=== PATIENT | female | born 1925 | race African-American/Black ===

== ENCOUNTER 2016-09-29 16:13 | Inpatient (IN) | payer MEDICARE, OTHER ==
--- NOTE | ~2016-09-29 | DS ---
Discharge Summary [facility] [address] [place]. [address] NAME: CANDI ENCINAS : [birth year] STATUS : DIS IN PAT#: [id number] AGE: 89 ADM/REG DATE : 09/29/16 MR#: [id number] REPORT SERV DATE: 10/03/16 DICTATED BY: RAFAELA TAVERA DATE: 10/03/16 REPORT STATUS : Draft TRANSCRIBED BY: MODL DATE: 10/03/16 ADMISSION DATE: 09/29/2016 DISCHARGE DATE: 10/03/2016 CONSULTING PHYSICIANS: None. FINAL DIAGNOSES: 1. Catheter associated urinary tract infection, Proteus mirabilis. 2. Status post encephalopathy with history of dementia. 3. Stage III decubitus ulcer. 4. Rheumatoid arthritis history. 5. Hypertension. 6. Chronic obstructive pulmonary disease. 7. Depression and anxiety. 8. Gastroesophageal reflux disease. DIAGNOSTIC EXAMS: Chest x-ray showing stable COPD changes in the lungs without acute cardiopulmonary abnormality. Stable mild enlargement of the cardiac silhouette and atherosclerotic elongation of the thoracic aorta. HOSPITAL COURSE: Please refer to the H and P done by Dr. Howard dated on 09/29/2016. Briefly, this is an 89-year-old female, who comes in for confusion. The patient has a history of bilateral sacral decubitus ulcer, and according to the family, has been improving throughout the month. However, she has this catheter associated UTI that has been going on and off. They have been treated the patient with several different antibiotics, but they noted increase in confusion and they brought the patient to the hospital. Here, they found the patient to have urinary tract infection, ceftriaxone was started, and the culture turned out to be Proteus mirabilis, which is sensitive to the second and third generation cephalosporins. The patient's confusion improved, and I discussed this at length with the son that they need to take care of that catheter and to have that periodically replaced. I also discussed with them that doing surveillance urinary cultures is not a good idea as the patient will always be colonized. The patient will now be discharged with the above diagnosis. She will be on the following medications. Norvasc 10 mg a day, folic acid 1 mg a day, milk of magnesia 30 mL a day, multivitamin once a day, Lopressor 12.5 mg every eight hours, Protonix 40 mg a day, Paxil 10 mg a day, Pred Forte eyedrops twice a day, Senokot at bedtime, Tylenol as needed, Dulcolax as needed, Symbicort two puffs 160/4.5 twice a day, Ultram 50 mg every six hours p.r.n., and I will give her a prescription for Ceftin 500 mg p.o. b.i.d. for one more week. The patient would resume her home health and home PT. This has been explained at length to the son and the patient. TIME SPENT: 35 minutes. Discharge Summary [address] [address] NAME: CANDI ENCINAS : [birth year] STATUS : DIS IN PAT#: [id number] AGE: 89 ADM/REG DATE : 09/29/16 MR#: [id number] REPORT SERV DATE: 10/03/16 DICTATED BY: RAFAELA TAVERA DATE: 10/03/16 REPORT STATUS : Draft TRANSCRIBED BY: CARMENCITA DATE: 10/03/16 CARLO/CARMENCITA Rafaela Tavera M.D. / [id number] CC: Gin Mendoza M.D.
--- NOTE | ~2016-09-29 | HP ---
History And Physical [address] [place]. [address] NAME: CANDI ENCINAS : [birth year] STATUS : ADM IN [facility]#: [id number] AGE: 89 ADM/REG DATE : 09/29/16 MR#: [id number] REPORT SERV DATE: 09/29/16 DICTATED BY: LUIS FELIPE VILLATORO DATE: 09/29/16 REPORT STATUS : Draft TRANSCRIBED BY: MODL DATE: 09/29/16 DATE OF ADMISSION: 09/29/2016 CHIEF COMPLAINT: An 89-year-old female presenting with confusion and headache. HISTORY OF PRESENTING ILLNESS: The patient's history was obtained through careful interview with the patient, son, and caregiver coupled with review of [facility] and [facility] medical records. The patient, just on the night prior to admission, was "not feeling good." She had chills, but no fevers and then she developed a slight headache. It is a pressure-like quality at the back of her head and in her neck, 6/10 severity, stating "is giving me a fit." Then today, the patient became slightly confused according to her family and caregiver, but no overt hallucinations. She was not combative or irritable. No abdominal pain. No nausea or vomiting. She has had a good appetite. She has a chronic sacral decubitus ulcer, but it has been "looking good" according to family. She was just seen on the day of admission by Home [facility] Care nurse and thought that it was looking improved, but there was concern on vital signs of an elevated pulse. REVIEW OF SYSTEMS: Otherwise, a 14-point review of systems was obtained and was negative. PAST MEDICAL HISTORY: 1. COPD. 2. Congestive heart failure. 3. Diabetes. 4. Depression and anxiety. 5. Gastroesophageal reflux disorder. 6. Dementia. 7. Hypertension. 8. Urinary tract infections. 9. Sacral decubitus ulcer. 10.Cholelithiasis. 11.Thoracentesis. 12.Rheumatoid arthritis. PAST SURGICAL HISTORY: 1. Bilateral [id number] amputations. 2. Some kind of aneurysm repair? 3. . 4. Cervical spine surgery. 5. Pericardiocentesis, 1997. History And Physical [address] [place] [address] NAME: CANDI ENCINAS : [birth year] STATUS : ADM IN PAT#: [id number] AGE: 89 ADM/REG DATE : 09/29/16 MR#: [id number] REPORT SERV DATE: 09/29/16 DICTATED BY: LUIS FELIPE VILLATORO DATE: 09/29/16 REPORT STATUS : Draft TRANSCRIBED BY: CARMENCITA DATE: 09/29/16 ALLERGIES: TO PENICILLIN, SULFA, AND NEOSPORIN. SOCIAL HISTORY: Quit smoking. No alcohol abuse. Has been single for 50+ years. Has two sons. Is seen by Home Health Care. FAMILY HISTORY: Heart disease and stroke. CURRENT MEDICATIONS: Include Tylenol, Norvasc 10 mg p.o. daily, Dulcolax, Symbicort two puffs inhaled twice a day, folic acid p.o. daily, metoprolol 12.5 mg p.o. q.8 hours, milk of magnesia, multivitamin, Macrobid 100 mg p.o. b.i.d., Protonix 40 mg p.o. daily, Paxil 10 mg p.o. daily, eye drops, Senokot, tramadol p.r.n., witch lizzy. PHYSICAL EXAMINATION: VITAL SIGNS: Temperature 98.8, pulse 115, blood pressure 157/86, respiratory rate 16, O2 saturation 94% on room air. GENERAL: Chronically ill-appearing female, in no particular distress at this time. HEENT: Pupils equal, round, and reactive to light. No conjunctival pallor. No scleral icterus. Nares are patent. Oropharynx is clear of obstruction. Moist mucous membranes. NECK: Trachea midline. No thyromegaly. LYMPH: No cervical lymphadenopathy. No supraclavicular lymphadenopathy. RESPIRATORY: Clear to auscultation at bases. No wheezes, no rales, no rhonchi. The patient has a normal respiratory effort. CARDIOVASCULAR: Tachycardic, regular rhythm. No murmurs, rubs, or gallops. No current extremity edema is appreciated around her amputation stumps. ABDOMEN: Completely soft by exam. Nondistended. No hepatosplenomegaly. DERMATOLOGICAL: Warm and dry extremities. No pallor, no cyanosis. The patient's sacrum has a small decubitus ulceration that is deep that is approximated as a stage 3 ulcer by my exam. There is no purulent drainage. No surrounding erythema, heat, swelling, and tenderness, and the patient has no necrotic debris around it. PSYCHIATRIC: Normal affect. Good mood. Alert and oriented x3 currently. LABORATORY DATA: White blood cell count 10, hemoglobin 15, hematocrit 43, platelets 193, lactic acid 2.0. Sodium 141, potassium 4.2, chloride 103, bicarb 27, BUN 21, creatinine 0.65, glucose 91. Brain natriuretic peptide 263. Troponin negative. Liver enzymes within normal limits. Urinalysis shows large leukocyte esterase with 138 white blood cells. STUDIES: Chest x-ray by my own evaluation shows no acute cardiopulmonary process. ASSESSMENT AND PLAN: 1. Sepsis with encephalopathy. Lactic acid of 2.0. Tachycardia. Check blood cultures. Check urine cultures. Place on IV antibiotics. 2. Nino catheter-associated urinary tract infection. Check urine culture. Place on IV antibiotics. 3. Sacral decubitus stage 3 by my exam. No signs of active infection. We will obtain a wound care consult. 4. Bilateral bsksl-tka-ekok amputation history. History And Physical [address] [address] NAME: CANDI ENCINAS : [birth year] STATUS : ADM IN [facility]#: [id number] AGE: 89 ADM/REG DATE : 09/29/16 MR#: [id number] REPORT SERV DATE: 09/29/16 DICTATED BY: LUIS FELIPE VILLATORO DATE: 09/29/16 REPORT STATUS : Draft TRANSCRIBED BY: CARMENCITA DATE: 09/29/16 5. Dementia. 6. Rheumatoid arthritis. Check ESR. 7. Diabetes. Check hemoglobin A1c. Place on sliding scale insulin. It is noted the patient is not on any home diabetes coverage? KPL/MODL Luis Felipe Villatoro M.D. / [id number] CC: Gin Mendoza M.D. Michael C Prostko, M.D.
[2016-09-29 15:48] LABS: ASCORBIC ACID (UR NOT ORDER) NEG (NEG); BILIRUBIN, URINE NEGATIVE (NEG); ER URINALYSIS TAT 0 Hrs 10 Mins; KETONE, URINE NEGATIVE (NEG); LEUKOCYTE ESTERASE(NOT OR LARGE (NEG); WBC (NOT ORDERED) (RFLEX) 138 (0-5)
[2016-09-29 15:49] LABS: NITRITE (URINE) POS (NEG)
[~2016-09-29 16:13] MED LIST: ACET500CAP PO; BISR PR; CATAPRES2 TOP; CATPATCH1 TOP; COMBIVENT RESPIM4 GM INH; EYE DROP OPH; FOLIC PO; LOP25 PO; MELA3 PO; MOMUD PO; MULTIVIT/MIN PO; NORV10 PO; NORV5 PO; PAX10 PO; PREDFORTE OPH; PREDNISOLO15 MG/5 M1 OPH; PROTONIX PO; REM15 PO; SENTAB PO; SYMBICORT 160/41 INH INH; ULTRAM50 PO; VITC500 PO; [UNRECOGNIZED DRUG - OTHER] PR; [UNRECOGNIZED DRUG - OTHER] TOP; [UNRECOGNIZED DRUG - REMARK] TOP
[2016-09-29 16:57] LABS: A/G RATIO 0.6 (0.7-1.9); ALBUMIN 3.3 G/DL (3.5-5.0); BUN (BLOOD UREA NITROGEN) 21 MG/DL (6-23); CALCIUM, SERUM 8.8 MG/DL (8.5-10.4); CHLORIDE, SERUM 103 MMOL/L (96-112); CO2 (CARBON DIOXIDE) 27 MMOL/L (24-34); CREATININE 0.65 MG/DL (0.55-1.02); GFR AFRICAN AMERICAN 91 ML/MIN (>=60); GFR NON AFRICAN AMERICAN 79 ML/MIN (>=60); GLOBULIN 5.3 G/DL (2.5-4.1); GLUCOSE, SERUM 88 MG/DL (60-99); POTASSIUM, SERUM 4.2 MMOL/L (3.5-5.3); SGOT(AST) 19 U/L (5-40); SGPT(ALT) 13 U/L (5-65); SODIUM, SERUM 141 MMOL/L (135-148); TOTAL BILIRUBIN 0.6 MG/DL (0-1.2); TOTAL PROTEIN 8.6 G/DL (6.0-8.5); TROPONIN I <0.02 NG/ML (<0.05)
[2016-09-29 16:58] LABS: ALKALINE PHOSPHATASE 80 U/L (45-117)
[2016-09-29] MEDS ORDERED: ACET500CAP PO (17:37)
[2016-09-29] MEDS ORDERED: NORV10 PO (17:37)
[2016-09-29] MEDS ORDERED: BISR PR (17:38)
[2016-09-29] MEDS ORDERED: FOLIC PO (17:38)
[2016-09-29] MEDS ORDERED: SENTAB PO (17:39)
[2016-09-29] MEDS ORDERED: LOP25 PO (17:40)
[2016-09-29] MEDS ORDERED: MOMUD PO (17:40)
[2016-09-29] MEDS ORDERED: MACROBID PO (17:41)
[2016-09-29] MEDS ORDERED: PROTONIX PO (17:41)
[2016-09-29] MEDS ORDERED: PAX10 PO (17:41)
[2016-09-29] MEDS ORDERED: PREDFORTE OPH (17:42)
[2016-09-29] MEDS ORDERED: SYMBICORT 160/41 INH INH (17:43)
[2016-09-29] MEDS ORDERED: MULTIVIT/MIN PO (17:43)
[2016-09-29] MEDS ORDERED: ULTRAM50 PO (17:43)
[2016-09-29] MEDS ORDERED: [UNRECOGNIZED DRUG - OTHER] PR (17:44)
[2016-09-29] MEDS ORDERED: PREPARATIO2 PR (17:44)
[2016-09-29 23:06] LABS: BASOPHILS 0.2 %; BASOPHILS ABSOLUTE 0.03 10/3/uL (0.0-0.16); EOSINOPHILS 3.1 %; EOSINOPHILS ABSOLUTE 0.37 10/3/uL (0.0-0.53); HEMATOCRIT 33.6 % (36.0-48.0); HEMOGLOBIN 10.7 g/dL (12.0-16.0); IMMATURE GRANULOCYTES 0.2 %; IMMATURE GRANULOCYTES ABSOLUTE 0.03 10/3/uL (0.0-0.11); LYMPHOCYTES 12.2 %; LYMPHOCYTES ABSOLUTE 1.48 10/3/uL (0.67-4.30); MEAN CORPUS HGB CONC 31.8 g/dL (32.0-36.0); MEAN CORPUSCULAR HEMOGLOB 24.2 pg (26.0-34.0); MEAN PLATELET VOLUME 10.6 fL (9.2-13.0); MONOCYTES 4.9 %; MONOCYTES ABSOLUTE 0.59 10/3/uL (0.21-1.20); NEUTROPHILS 79.4 %; PLATELET COUNT 289 10/3/uL (150-400); RED CELL COUNT 4.42 10/6/uL (4.0-5.6)
[2016-09-29 23:07] LABS: ER CBC TAT 0 Hrs 07 Mins; MANUAL DIFF NO %; WHITE BLOOD CELLS 12.1 10/3/uL (4.5-10.5)
[2016-09-30 06:03] LABS: BASOPHILS 0.2 %; BASOPHILS ABSOLUTE 0.02 10/3/uL (0.0-0.16); EOSINOPHILS 4.5 %; EOSINOPHILS ABSOLUTE 0.46 10/3/uL (0.0-0.53); HEMATOCRIT 33.3 % (36.0-48.0); HEMOGLOBIN 10.9 g/dL (12.0-16.0); IMMATURE GRANULOCYTES 0.2 %; IMMATURE GRANULOCYTES ABSOLUTE 0.02 10/3/uL (0.0-0.11); LYMPHOCYTES 20.5 %; MEAN CORPUS HGB CONC 32.7 g/dL (32.0-36.0); MEAN CORPUSCULAR HEMOGLOB 25.1 pg (26.0-34.0); MEAN CORPUSCULAR VOLUME 76.6 fL (80-100); MONOCYTES 6.8 %; NEUTROPHILS 67.8 %; NEUTROPHILS ABSOLUTE 6.92 10/3/uL (2.02-8.40); PLATELET COUNT 308 10/3/uL (150-400); RED CELL COUNT 4.35 10/6/uL (4.0-5.6); WHITE BLOOD CELLS 10.2 10/3/uL (4.5-10.5)
[2016-09-30 06:05] LABS: INTERNATIONAL NORMAL RATI 1.3 UNITS (-); PARTIAL THROMBO TIME 43.9 SEC (22.5-37.2); PROTIME (NOT ORD) 15.7 SEC (12.0-14.5)
[2016-09-30 06:20] LABS: MANUAL DIFF NO %
[2016-09-30 06:29] LABS: BUN (BLOOD UREA NITROGEN) 18 MG/DL (6-23); CALCIUM, SERUM 8.3 MG/DL (8.5-10.4); CHLORIDE, SERUM 110 MMOL/L (96-112); CO2 (CARBON DIOXIDE) 23 MMOL/L (24-34); CREATININE 0.52 MG/DL (0.55-1.02); GFR AFRICAN AMERICAN 98 ML/MIN (>=60); GFR NON AFRICAN AMERICAN 85 ML/MIN (>=60); GLUCOSE, SERUM 83 MG/DL (60-99); SGOT(AST) 18 U/L (5-40); SGPT(ALT) 10 U/L (5-65); SODIUM, SERUM 143 MMOL/L (135-148); TOTAL BILIRUBIN 0.3 MG/DL (0-1.2); TOTAL PROTEIN 7.1 G/DL (6.0-8.5); ULTRASENSITIVE TSH 0.975 MCIU/ML (0.358-3.740)
[2016-09-30 06:31] LABS: A/G RATIO 0.6 (0.7-1.9); ALBUMIN 2.6 G/DL (3.5-5.0); ALKALINE PHOSPHATASE 64 U/L (45-117); GLOBULIN 4.5 G/DL (2.5-4.1)
[2016-09-30 10:03] LABS: SED RATE 55 MM/HR (0-20)
[2016-10-03] MEDS ORDERED: PR25 PO (08:19)
[2016-10-03] MEDS ORDERED: PERCOCET 7.5/321 TAB PO (08:19)
[2016-10-03] MEDS ORDERED: CEFT5 PO (09:42)
== END 2016-10-03 16:54 | disposition home health service (06) | DRG 698 ==
LOC: ER 16:13 → 5SO 20:15
PROVIDERS: Emergency Medicine; Hospitalist
DX: T83.518A Infection and inflammatory reaction due to other urinary catheter, initial encounter (principal); G92 Toxic encephalopathy; L89.153 Pressure ulcer of sacral region, stage 3; I11.0 Hypertensive heart disease with heart failure; F03.90 Unspecified dementia, unspecified severity, without behavioral disturbance, psychotic disturbance, mood disturbance, and anxiety; I50.9 Heart failure, unspecified; N39.0 Urinary tract infection, site not specified; Z89.612 Acquired absence of left leg above knee; Z89.611 Acquired absence of right leg above knee; M06.9 Rheumatoid arthritis, unspecified; J44.9 Chronic obstructive pulmonary disease, unspecified; E11.9 Type 2 diabetes mellitus without complications; F32.9 Major depressive disorder, single episode, unspecified; F41.9 Anxiety disorder, unspecified; K21.9 Gastro-esophageal reflux disease without esophagitis; Z88.0 Allergy status to penicillin; Z88.2 Allergy status to sulfonamides; Z88.8 Allergy status to other drugs, medicaments and biological substances; Z87.891 Personal history of nicotine dependence; Z79.899 Other long term (current) drug therapy
CPT/HCPCS: 71010; 80053; 81001; 82962; 83036; 83605; 83735; 83880; 84443; 84484; 85025; 85610; 85652; 85730; 87040; 87077; 87086; 87186; 96374; 99285; A9270-GY